=== PATIENT | female | born 1985 | race Caucasian/White ===

== ENCOUNTER 2018-02-07 17:02 | Emergency (ER) | payer OTHER, SELFPAY ==
[2018-02-07 17:03] VITALS: BP 121/77; PULSE 112; RESP 16; TEMP 37.1; BMI 40.5
--- NOTE | 2018-02-07 17:18 | RAD_ITS ---
STUDY: X-RAY - LEFT TIBIA AND FIBULA REASON FOR EXAM: Female, 33 years old. Fell on steps. TECHNIQUE: 2 view(s) of the tibia and fibula were obtained. COMPARISON: None. FINDINGS: Normal visualized tibia. Normal visualized fibula. The soft tissue structures are unremarkable. RAD/Tibia & Fibula 2 Views IMPRESSION: Within normal limits examination of the tibia and fibula. Electronically Signed: Dianelys Pinto MD at 18:14 EDT Tel , Service support ,
[2018-02-07] MEDS: Naproxen 500 MG Tablet PO (17:29)
--- NOTE | 2018-02-07 17:48 | ED.VISSUMM ---
- ER Visit Summary Date of Service: 02/07/18 Chief Complaint: Left leg pain History of Present Illness: The patient is a 33 F who fell outside today. She hit the left lower leg on concrete. She has no previous injuries or surgeries. Her pain is in the distal tibial area. No ankle or foot pain. She was able to walk on it Physical Examination: Vital signs reviewed. Left leg exam reveals tenderness palpation of the mid distal tibial area. She does have an abrasion. Painful range of motion. 2+ pulses Test Results: X-rays per my interpretation show no fracture Emergency Department Course and Treatment: Patient was given naproxen. She will continue ice and NSAIDs at home. Follow-up with PCP Treatment Plan: [] Disposition: Discharge Impression: Left tibial contusion This note was generated with [employer] dictation software. It may contain incorrect words, spelling, and punctuation that were not noted in review of the chart prior to signing ED Disposition - Plan for ED Patient: Chief Complaint: Lower Extremity Injury Referrals: Care Physician,No Primary [Primary Care Provider] -
--- NOTE | 2018-02-07 17:49 | ED.DEP ---
ED Disposition - Plan for ED Patient: Disposition: Home or Assisted Living Chief Complaint: Lower Extremity Injury Instructions: ED Contusion Lower Ext Referrals: Care Physician,No Primary [Primary Care Provider] -
== END 2018-02-07 18:04 | disposition home or self-care (01) ==
PROVIDERS: Emergency Provider Emergency Medicine
DX: S80.12XA Contusion of left lower leg, initial encounter (principal); W19.XXXA Unspecified fall, initial encounter; Y93.9 Activity, unspecified; Y92.9 Unspecified place or not applicable
CPT/HCPCS: 73590; 99283